=== PATIENT | male | born 1990 | race Two or more races ===

== ENCOUNTER 2020-10-09 04:29 | Emergency (ER) | payer BC ==
[~2020-10-09] VITALS: Ht 172.7 cm; Wt 90.7 kg
[2020-10-09] MEDS ORDERED: MORPHINE SULFATE 4 MG/1 ML DISP.SYRIN IM ONE (04:45)
[2020-10-09] MEDS ORDERED: IV NORMAL SALINE 1000 ML BAG IV ONE (05:00)
[2020-10-09] MEDS ORDERED: MORPHINE SULFATE 4 MG/1 ML DISP.SYRIN IV ONE (05:00)
[2020-10-09] MEDS ORDERED: CEFAZOLIN 2 G in IV DEXTROSE 5% 100 ML IV ONE (05:00)
[2020-10-09] MEDS ORDERED: MORPHINE SULFATE 4 MG/1 ML DISP.SYRIN ONE (05:01)
[2020-10-09] MEDS ORDERED: MORPHINE SULFATE 2 MG/1 ML DISP.SYRIN ONE (05:01)
[2020-10-09] MEDS ORDERED: CEFAZOLIN 1 G VIAL ONE (05:02)
--- NOTE | 2020-10-09 05:04 | NUR ---
Called [facility] at [facility]. Spoke to Shelbi charge nurse who requested picture to be send to .
[2020-10-09] MEDS ORDERED: HYDROMORPHONE 1 MG/1 ML DISP.SYRIN ONE (05:15)
[2020-10-09 05:21] LABS: HEMATOCRIT 43.9 % (36.7-47.1); MEAN CORPUSCULAR HEMOGLOBIN 29.6 uug (23.8-33.4); MEAN CORPUSCULAR VOLUME 88.9 fL (73.0-96.2); PLATELET COUNT (AUTO) 298 K/uL (152-348)
--- NOTE | 2020-10-09 05:34 | NUR ---
Dr. Taylor speaking with Dr. Fitzgerald of the [facility].
[2020-10-09 05:37] LABS: BILIRUBIN,DIRECT 0.1 mg/dL (0.0-0.2); BILIRUBIN,TOTAL 0.3 mg/dL (0.2-1.0); CREATININE 1.1 mg/dL (0.6-1.3); POTASSIUM 3.8 mmol/L (3.5-5.1); TOTAL PROTEIN, SERUM 7.8 g/dL (6.4-8.2)
[2020-10-09] MEDS ORDERED: KETAMINE HCL 500 MG/10 ML INJ ONE (05:42)
[2020-10-09] MEDS ORDERED: HYDROMORPHONE 1 MG/1 ML DISP.SYRIN IV ONE (05:45)
[2020-10-09] MEDS ORDERED: KETAMINE HCL 500 MG/10 ML INJ IV ONE (05:45)
--- NOTE | 2020-10-09 05:52 | NUR ---
Pt's father decided to drive pt to [place] instead of ER to ER transfer. Written and verbal after care instructions given. Patient verbalizes understanding of instructions and father assumes all liabilities. Stressed follow up or return to ER for worsening s/s. Pt out of ER via wheelchair, assisted patient on transfer from chair to car, no falls noted, no acute signs of distress, VSS, all belongings taken, to be driven by father to [facility].
[2020-10-09 05:56] VITALS: BP 140/95
== END 2020-10-09 05:56 | disposition home or self-care (01) ==
LOC: ER 04:36
DX: T23.252A Burn of second degree of left palm, initial encounter (principal); X08.8XXA Exposure to other specified smoke, fire and flames, initial encounter; Y92.89 Other specified places as the place of occurrence of the external cause
CPT/HCPCS: 36415; 80048; 80076; 82550; 85025; 96365; 96375; 99284; J0690; J1170; J2270 ×2; J3490; J7060; A4663; J7030